=== PATIENT | male | born 1935 | race Caucasian/White ===

== ENCOUNTER → 2023-11-11 10:17 | Outpatient (REF) | payer MEDICARE, OTHER, SELFPAY ==
[2023-11-11 11:18] LABS: % Basophils 0.7 % (0-2); % Eosinophils 2.3 % (0-6); % Immature Granulocytes 0.2 % (0-0.5); % Lymphocytes 18.8 % (20.5-51.1); % Monocytes 11.5 % (1.7-9.3); % Neutrophils 66.5 % (42.2-75.2); Absolute Eosinophils 0.1 10^3/uL (0-0.7); Absolute Lymphocytes 1.1 10^3/uL (1.2-3.4); Absolute Monocytes 0.7 10^3/uL (0.1-0.6); Absolute Neutrophils 3.8 10^3/uL (1.4-6.5); Hematocrit 38.5 % (39.0-52.0); Mean Corp Hgb Conc. 33.8 g/dL (33.0-37.0); Mean Corpuscular Hgb 31.6 pg (27.0-31.0); Mean Corpuscular Volume 93.4 fL (80.0-94.0); Mean Platelet Volume 8.8 fL (7.4-10.4); Nucleated Red Blood Cells % 0 % (-); Platelet Count 228 10^3/uL (130-400); Red Blood Cell Count 4.12 10^6/uL (4.70-6.10); Red Cell Dist. Width 12.6 % (11.5-14.5); White Blood Cell Count 5.6 10^3/uL (4.8-10.8)
[2023-11-11 13:18] LABS: ALT (SGPT) 23 U/L (0-50); AST (SGOT) 31 U/L (17-59); Albumin 4.2 g/dl (3.5-5.0); Alkaline Phosphatase 59 U/L (38-126); Blood Urea Nitrogen 21 mg/dl (9-20); Calcium 8.8 mg/dl (8.4-10.2); Carbon Dioxide 26 mmol/L (22-30); Chloride 102 mmol/L (98-107); Glucose 107 mg/dl (70-99); HDL Cholesterol 62 mg/dl; LDL Cholesterol, Calculated 102 mg/dl; Potassium 4.3 mmol/L (3.5-5.1); Sodium 137 mmol/L (135-145); Total Bilirubin 0.7 mg/dl (0.2-1.3); Total Cholesterol 174 mg/dl (50-199); Total Protein 6.6 g/dl (6.3-8.2); Triglyceride 54 mg/dl (10-149); Very Low Density Lipoprotein 10 mg/dl (0-30); eGFR > 60.00
== END ==
LOC: RAD 10:17
PROVIDERS: ATTENDING PHYSICIAN Family Medicine
DX: E55.9 Vitamin D deficiency, unspecified (principal); N40.0 Benign prostatic hyperplasia without lower urinary tract symptoms; E78.00 Pure hypercholesterolemia, unspecified; Z00.00 Encounter for general adult medical examination without abnormal findings; R79.89 Other specified abnormal findings of blood chemistry
CPT/HCPCS: 36415; 80053; 80061; 85025

== ENCOUNTER → 2024-02-01 11:13 | Outpatient (REF) | payer MEDICARE, OTHER, SELFPAY | LOC: RAD 11:13 | PROVIDERS: ATTENDING PHYSICIAN Family Medicine; FAMILY PHYSICIAN Family Medicine | DX: Z91.81 History of falling (principal); M54.50 Low back pain, unspecified | CPT/HCPCS: 72110 ==

== ENCOUNTER → 2024-03-05 09:19 | Outpatient (REF) | payer MEDICARE, OTHER, SELFPAY ==
[2024-03-05 10:34] LABS: Hematocrit 40.5 % (39.0-52.0); Hemoglobin 13.6 g/dL (13.0-18.0); Mean Corp Hgb Conc. 33.6 g/dL (33.0-37.0); Mean Corpuscular Hgb 30.2 pg (27.0-31.0); Mean Platelet Volume 8.8 fL (7.4-10.4); Platelet Count 187 10^3/uL (130-400); Red Cell Dist. Width 15.1 % (11.5-14.5); White Blood Cell Count 5.7 10^3/uL (4.8-10.8)
[2024-03-05 11:11] LABS: Blood Urea Nitrogen 21 mg/dl (9-20); Calcium 8.5 mg/dl (8.4-10.2); Carbon Dioxide 26 mmol/L (22-30); Chloride 101 mmol/L (98-107); Glucose 124 mg/dl (70-99); Potassium 4.1 mmol/L (3.5-5.1); Sodium 139 mmol/L (135-145); eGFR > 60.00
== END ==
LOC: SDSPAT 09:19
PROVIDERS: ATTENDING PHYSICIAN Specialist; FAMILY PHYSICIAN Family Medicine; OTHER PHYSICIAN Family Medicine
DX: Z01.818 Encounter for other preprocedural examination (principal)
CPT/HCPCS: 36415; 80048; 85027; 93005

== ENCOUNTER 2024-03-07 06:50 | Day surgery (SDC) | payer MEDICARE, OTHER, SELFPAY ==
[2024-03-05 10:23] VITALS: BMI 26.6
[2024-03-07] VITALS (13 sets, daily range): BP systolic 127–163; BP diastolic 75–102; BMI 26.6
--- NOTE | 2024-03-07 15:51 | PTCARENOTE ---
Pt arrived to [facility] from PACU s/p TURP. Pt AAOx3, 3-way Dejesus in place, CBI infusing draining clear-yellow urine, traction still applied and to be removed at 1600 per the order. Pt states no pain at this time. Oriented to call garcia and room, bed
locked and in lowest position, call garcia within reach.
[2024-03-07] MEDS: ZYRTEC 10 MG PO (20:45)
[2024-03-07] MEDS: PROTONIX 40 MG PO (20:45)
[2024-03-07] MEDS: CYMBALTA DELAYED RELEASE 120 MG PO (20:45)
[2024-03-07] MEDS: TYLENOL 650 MG PO (20:48)
[2024-03-08 07:22] VITALS: BP 135/75
[2024-03-08] MEDS: MAG-TAB SR 84 MG PO (09:13)
[2024-03-08] MEDS: MIRALAX 4 GRAMS PO (09:13)
--- NOTE | 2024-03-08 10:43 | CM ---
Met with pt at bedside
Pt reports he lives with hi in a 2 story home with FF set-up; 2 steps to enter
Independent with ADL's, ambulates with rollator outside of home, assists as needed
DME - rollator
SNF - past hx [place] [facility], [facility]
HH - in past - unable to recall agency
Has ride at discharge
PCP - Vladislav Kinney
Pharm - [facility]
PLan - anticipate home no needs
[2024-03-08 10:53] VITALS: BP 143/90
[2024-03-08] MEDS: FLOMAX 0.4 MG PO (10:59)
[2024-03-08] MEDS: URECHOLINE 50 MG PO (10:59)
--- NOTE | 2024-03-08 11:29 | W.PN.URO.CBU ---
Today's Communication / Plan
-
home today w/ or w/o Dejesus
Assessment / Plan
-
voiding trial in progress
Diagnosis
-
Date of Service: March 08, 2024
-
Patient Diagnosis: BPH with ESTRADA s/p TURP
Post Op Day: 1
Subjective
-
Dejesus out 'but I've only urinated a little bit so far'
Objective
-
Vital Signs
Temp Pulse Resp BP Pulse Ox
97.6 F 89 14 135/75 96
03/08/24 07:22 03/08/24 07:22 03/08/24 07:22 03/08/24 07:22 03/08/24 07:22
Intake and Output
03/07/24 03/08/24 03/09/24
06:59 06:59 06:59
Intake Total 1940 / 1940
Output Total -1650 / -1650
Balance 3590 / 3590
Intake:
Oral fluids 1740 / 1740
IV fluids (Total) 200 / 200
Normosal 200 / 200
Output:
True Urine Output from CBI -1650 / -1650
Physical Exam
-
General - well developed, well nourished, no acute distress
Abdomen - soft, non-tender, positive bowel sounds, no distention
== END 2024-03-08 13:03 | disposition home or self-care (01) ==
LOC: SDS 06:50
PROVIDERS: ATTENDING PHYSICIAN Specialist; FAMILY PHYSICIAN Family Medicine
DX: C61 Malignant neoplasm of prostate (principal); N40.1 Benign prostatic hyperplasia with lower urinary tract symptoms; N32.0 Bladder-neck obstruction
CPT/HCPCS: 52601; 88305; 88344

== ENCOUNTER → 2024-03-27 09:14 | Outpatient (REF) | payer MEDICARE, OTHER, SELFPAY | LOC: RAD 09:14 | PROVIDERS: ATTENDING PHYSICIAN Family Medicine; FAMILY PHYSICIAN Family Medicine | DX: R10.11 Right upper quadrant pain (principal) | CPT/HCPCS: 74177; Q9967 ==